=== PATIENT | female | born 1950 | race Caucasian/White ===

== ENCOUNTER 2024-04-09 15:19 | Emergency (ER) | payer OTHER, SELFPAY ==
[2024-04-09] VITALS (7 sets, daily range): BP systolic 74–118; BP diastolic 25–50; PULSE 53–83; RESP 12–18; TEMP 36.4; O2SAT 93–96
[2024-04-09] MEDS: Normal Saline 500 ML 250 ML IV (15:30)
--- NOTE | 2024-04-09 15:30 | DI.CT_ITS ---
Exam(s) CT HEAD CERV SPINE FACIAL WO EXAM: CT HEAD CERV SPINE FACIAL WO CLINICAL HISTORY: fall, hit head/face, on elaquis. TECHNIQUE: Imaging Protocol: Axial computed tomography images with coronal and sagittal reformatted images were created and reviewed COMPARISON: No exams were available for comparison FINDINGS: CT Head: Ventricles and Extra axial spaces: Normal in size and morphology for the patient's age. Hemorrhage: None. Cerebral parenchyma: There are areas of decreased attenuation in the white matter consistent with chr onic microvascular ischemic disease. No mass effect is identified. Midline shift: None. Brainstem/Cerebellum: Normal. Calvarium: Normal. Visualized Paranasal sinuses/Mastoids: There is mild mucosal thickening in the left maxillary sinus. The remaining visualized paranasal sinuses and mastoid air cells are clear. Soft Tissues: Unremarkable. CT Face: Facial Bones: No definite fracture is noted in facial bones. Sinuses and Mastoids: There is mild mucosal thickening in the left maxillary sinus. The remaining v isualized paranasal sinuses are clear. No air-fluid levels are seen. The mastoid air cells are danuta r. Globes, extraocular muscles, optic nerves and retrobulbar fat: Normal. Upper aerodigestive tract: Normal. Mandible and bilateral temporomandibular joints: Normal. Soft tissues: Normal. CT Cervical Spine: Bones: No acute fracture or subluxation. Note is made of DISH in the cervical spine. Soft Tissues: There is an 8 mm hypodensity in the left lobe of the thyroid gland. No follow-up is re commended. Lung Apices: Clear. IMPRESSION: 1. No acute intracranial process. 2. No acute fracture or subluxation in the cervical spine. 3. No acute facial fracture. RADIATION DOSE DELIVERED: 2,164.13mGy.cm Total DLP DATA REPOSITORY: All CT scans at this facility are submitted to the National Radiology Data Registry (NRDR) Dose Index Registry (DIR) with the [employer] (ACR). RADIATION OPTIMIZATION: All CT scans at this facility use at least one of these dose optimization te chniques: automated exposure control; mA and/or kV adjustment per patient size (includes targeted exa ms where dose is matched to clinical indication); or iterative reconstruction.
--- NOTE | 2024-04-09 15:30 | DI.RAD_ITS ---
Exam(s) XR SHOULDER RT COMPLETE 2+V EXAM: XR SHOULDER RT COMPLETE 2+V CLINICAL HISTORY: fall, hit right shoulder with pain. TECHNIQUE: 2D digital imaging was performed of the right shoulder. Three images were obtained. AP, Grashey and Y views were obtained. COMPARISON: No exams were available for comparison FINDINGS: BONES: An acute fracture through the surgical neck of the humerus. There is anterior and medial disp lacement of the distal fracture. No bony destructive lesion is seen. JOINTS: There is mild inferior subluxation of the humeral head relative to the glenoid. SOFT TISSUE: Normal. IMPRESSION: Acute displaced fracture involving the surgical neck of the right humerus. Please see the above disc ussion for complete details. DATA REPOSITORY: RADIATION DOSE DELIVERED:
--- NOTE | 2024-04-09 15:30 | DI.RAD_ITS ---
Exam(s) XR KNEE LT 3V AP,LAT,DEMARIO EXAM: XR KNEE LT 3V AP,LAT,DEMARIO CLINICAL HISTORY: fall, hit knee, hematoma. TECHNIQUE: 2D digital imaging was performed of the left knee. Three images were obtained. AP, late ral and PA tunnel views were obtained. COMPARISON: CR XR KNEE RT 3V AP,LAT,DEMARIO from 04/09/2024 FINDINGS: BONES: There is a question of depression of the medial tibial plateau. The bones are osteopenic. D ue to positioning evaluation is limited. No bony destructive lesion is seen. Enthesophytes are seen at the anterior patella. JOINTS: Moderately severe degenerative changes are present in the knee characterized by joint space n arrowing and osteophytes. No joint effusion is seen. No loose body. SOFT TISSUE: Normal. IMPRESSION: Question of depression of the medial tibial plateau. Medial tibial plateau fracture should be consid ered. CT scan of the knee should be considered in this patient for further evaluation. DATA REPOSITORY: RADIATION DOSE DELIVERED:
--- NOTE | 2024-04-09 15:34 | W.ED.GENAD ---
Discharge Plan Disposition Patient Disposition: Home Condition: Good Discharge Details Clinical Impression: Closed right humeral fracture, Contusion of nose Primary Care Provider: Unknown,Unknown ED Provider: Maurizio Durham Home Meds and New Rx's Prescriptions: No Action bumetanide 2 mg tablet 2 mg PO DAILY Eliquis 5 mg tablet 5 mg PO BID dapagliflozin propanediol [Farxiga] 10 mg tablet 10 mg PO DAILY tadalafil [Cialis] 20 mg tablet 20 mg PO Q OTHER DAY benazepril 40 mg tablet 40 mg PO DAILY potassium 20 mg tablet,chewable PO montelukast [Singulair] 10 mg tablet 10 mg PO DAILY Discharge Instructions Instructions: Upper Arm Fracture ED Additional Instructions: At this time you have a fracture of your humerus in your right arm/shoulder. Please keep your arm in the cuff and collar splint. Please take Tylenol as needed for pain, 1000 mg every 6 hours as a maximum dose. Please also gently apply the Voltaren gel to help with the pain. We have placed a referral with Dr. Jeana Garner's office. Please follow-up closely with them or your preferred client application support specialist. Please sleep seated somewhat upright to help with the pain. If you notice any worsening of your symptoms, or any new symptoms such as vomiting, diarrhea, fever, chills, shortness of breath, chest pain, numbness, weakness, or fainting , please return immediately to the emergency department for reevaluation. Please follow up with your primary care provider as soon as possible for reassessment and reevaluation. As always, it was a pleasure participating in your medical care today. Referrals: Gerry Garner MD [ [facility] STAFF PHYSICIAN] - Santi Hills MD [ [facility] STAFF PHYSICIAN] - [facility] General Date/Time Provider Initiated Documentation: 04/09/24 15:20. HPI Narrative: 73-year-old female who comes from [facility] and receives most of her care down there with a past medical history of chronically low blood pressure, pulmonary hypertension, right-sided heart failure, interstitial lung disease, high blood pressure, high cholesterol, tricuspid regurg, atrial fibrillation on Eliquis, presents today for evaluation after fall. Patient states that she was walking when she tripped on an edge of carpet. She fell onto her outstretched hands and elbows. She hit her face and nose, and her knees. EMS was called and she was brought to the ER for further assessment. Patient complains of pain at the nose right shoulder and knees bilaterally. No neck chest or abdominal pain. She denies any loss of consciousness. She denies any new numbness or tingling. No shortness of breath. No pleuritic chest pain. No other complaints at this time. Related Data Home Medications ?Medication ?Instructions ?Recorded ?Confirmed apixaban 5 mg tablet (Eliquis) 5 mg PO BID 04/09/24 04/09/24 benazepril 40 mg tablet 40 mg PO DAILY 04/09/24 04/09/24 bumetanide 2 mg tablet 2 mg PO DAILY 04/09/24 04/09/24 dapagliflozin propanediol 10 mg 10 mg PO DAILY 04/09/24 04/09/24 tablet (Farxiga) montelukast 10 mg tablet 10 mg PO DAILY 04/09/24 04/09/24 (Singulair) potassium 20 mg chewable tablet mg PO 04/09/24 tadalafil 20 mg tablet (Cialis) 20 mg PO Q OTHER DAY 04/09/24 04/09/24 Allergies Allergy/AdvReac Type Severity Reaction Status Date / Time Penicillins AdvReac Intermediate Other (See Verified 04/09/24 17:25 Comment) General Stated Complaint: Fall/Non TraumaCriteria JESICA: 3 Review of Systems All systems reviewed & are unremarkable except as noted in HPI and below Exam Narrative Exam Narrative: 1.Const: Well-nourished, Well-developed, appearing stated age 2.Eyes: PERRL, no conjunctival injection, and symmetrical lids. 3.ENT: Atraumatic external nose and ears. Moist MM. Neck: Symmetric, trachea midline, No thyromegaly. There is no evidence of raccoon eyes, diaz sign, CSF rhinorrhea, mastoid tenderness, cranial crepitus, hemotympanum, exophthalmos, or hyphema. Patient demonstrates intact dentition with no signs of tooth avulsion or fracture, no signs of jaw deformity, no evidence of a LeFort's fracture, with an intact palate, nose and orbital region. There is some mild abrasion and contusion over the bridge of the nose, minimal tenderness there. There is no evidence of a nasal septal hematoma. No proptosis. Jaw closes symmetrically. Airway is clear. 4.CVS: Regular rate and rhythm, Normal s1 and s2. No carotid bruits, rubs, or gallops. Radial pulses 2+ bilaterally and symmetric. Dorsalis pedis pulses 2+ bilaterally and symmetric. 2+ capillary refill. No evidence of distant heart sounds. No extremity edema. No evidence of gross hemorrhage. 5.RESP: Airway clear, no obstructions. No abrasions or ecchymosis. Chest movement symmetric with respirations. No chest wall tenderness. Trachea midline. No crepitus. No step offs. No paradoxical movements. Lungs are clear to auscultation bilaterally. No rales, rhonchi, wheezing or stridor. Breath sound symmetric. No Sucking chest wounds. No clinical evidence of significant chest trauma. 6.GI: Soft, nondistended, nontender. Bowel tones normoactive. No masses or organomegaly. No ecchymosis or abrasions. No periumbilical ecchymosis or seatbelt sign. No flank or CVA tenderness. No clinical signs of significant trauma. GNo clinical evidence of significant abdominal trauma. 7.MSK: No gross deformities. Left upper extremity unremarkable on exam. Right upper extremity demonstrates tenderness in the right shoulder for the humeral head, pain with all ranges of motion for the shoulder. No midshaft humeral pain or distal pain. No elbow or forearm pain on the right. Lower extremities demonstrate mild tenderness over the knees bilaterally with mild swelling and bruising, no gross deformity or laxity. Patient is able to flex and extend both knees and hips without difficulty. She is able to bear weight without significant pain. Vascular exam demonstrates brisk capillary refill and intact pulses in all extremities. Pelvic exam demonstrates a stable pelvis, nontender to lateral compression and palpation of symphysis pubis. No midline cervical thoracic or lumbar spine tenderness 8.Skin: Warm, Dry. No rashes or lesions. 9.Neuro: returned item clerk II-XII grossly intact. Sensation grossly intact, no focal neurologic deficits. 10.Psych: (AAO) x3. Appropriate mood and affect Course Vital Signs Vital signs: Vital Signs Temperature 36.4 C 04/09/24 15:18 Pulse 72 04/09/24 15:18 Respiratory Rate 18 04/09/24 15:18 Blood Pressure 74/30 L 04/09/24 15:18 Temperature 36.4 C 04/09/24 15:18 Pulse 72 04/09/24 15:18 Respiratory Rate 18 04/09/24 15:18 Blood Pressure 74/30 L 04/09/24 15:18 Oxygen Delivery Method Room Air 04/09/24 15:18 Oxygen Flow Rate 0 04/09/24 15:18 Medical Decision Making 73-year-old female who comes from [facility] and receives most of her care down there with a past medical history of chronically low blood pressure, pulmonary hypertension, right-sided heart failure, interstitial lung disease, high blood pressure, high cholesterol, tricuspid regurg, atrial fibrillation on Eliquis, presents today for evaluation after fall. Patient states that she was walking when she tripped on an edge of carpet. She fell onto her outstretched hands and elbows. She hit her face and nose, and her knees. EMS was called and she was brought to the ER for further assessment. Patient complains of pain at the nose right shoulder and knees bilaterally. No neck chest or abdominal pain. She denies any loss of consciousness. She denies any new numbness or tingling. No shortness of breath. No pleuritic chest pain. No other complaints at this time. Exam demonstrates swelling and bruising over the knees however she is able to bear weight moves both knees and hips well without significant pain. Right shoulder notably tender at the humeral head, concern for potential humeral head fracture or dislocation. Neurovascular exam normal. Contusion over the face and nose. No other signs of trauma on the head or scalp. Differential is highest for facial fracture, potential osseous injury to the shoulder and knees. Will get x-rays of the extremities, CT scans of the head neck and face, gently rehydrate as the patient does have notably dry mucous membranes, monitor closely and reassess. Initial blood pressure is low, however the patient states that she is chronically low. Heart rate is normal. She demonstrates good peripheral pulses and brisk capillary refill. No abdominal pain or tenderness and no chest wall pain. Symptoms appear clinically inconsistent with tension pneumothorax or massive abdominal hemorrhage. Will gently rehydrate with 500 cc bolus. 7 PM After gentle fluid bolus the patient's blood pressure is normalized to 104 systolic. Laboratory workup is stable. Electrolytes stable. Creatinine slightly high at 2, however she is making good urine. proBNP mildly elevated at 677. CT scan of the head neck and face is negative for acute process. X-ray of the right knee shows no acute process, x-ray of the left knee showed a questionable depression of the medial tibial plateau, consider CT scan. CT was ordered and shows no evidence of acute fracture. Patient's right shoulder demonstrates acute displaced fracture involving the surgical neck of the right humerus with mild medial displacement. Mild subluxation is noted, but no kahlil dislocation. Patient remains neurovascularly intact. Patient will be placed in a cuff and collar. I did briefly review the images with Dr. Hills, he would like to follow-up outpatient for potential nonemergent surgical management. Patient and family is uncertain if they will go back to [place] or have orthopedic management here, but they are thankful for a referral to be placed here. Will recommend Tylenol at home, as well as topical Voltaren gel. We did get the patient up and ambulate her. She did very well with this. They have a stair chair at home, and the entire home is wheelchair accessible. Will recommend sleeping upright in a recliner for the next few days. Family is very helpful and at bedside. They feel comfortable going home at this time. Patient will be discharged. Discussed red flags for which to return. I have extensively reviewed the treatment plan and discharge instructions with the patient and their family. I have addressed all patient concerns at this time. The patient and family was made aware of what symptoms to monitor for that would warrant a return to the emergency department. Discussed the plan with the patient and family, they demonstrate verbal understanding and agreement with our assessment and plan at this time. The documentation in this chart was dictated using [employer] dictation software. Please excuse any dictation errors. FINDINGS: Bones: The osseous structures and articular surfaces are intact. Bony alignment is satisfactory. No cellulitic or osteomyelitic changes are identified. Moderately severe degenerative changes are seen throughout the knee characterized by joint space narrowing and osteophytes. The bones are osteopenic. No lytic or sclerotic lesions are identified. Soft Tissues: There is a small amount of fluid in the joint space. Atherosclerotic calcification is present. IMPRESSION: No acute fracture or dislocation. Lt Knee FINDINGS: BONES: There is a question of depression of the medial tibial plateau. The bones are osteopenic. Due to positioning evaluation is limited. No bony destructive lesion is seen. Enthesophytes are seen at the anterior patella. JOINTS: Moderately severe degenerative changes are present in the knee characterized by joint space narrowing and osteophytes. No joint effusion is seen. No loose body. SOFT TISSUE: Normal. IMPRESSION: Question of depression of the medial tibial plateau. Medial tibial plateau fracture should be considered. CT scan of the knee should be considered in this patient for further evaluation. Rt Knee FINDINGS: BONES: No acute fracture is present. No bony destructive lesion is seen. There is an enthesophyte at the anterior patella. Bones are osteopenic. JOINTS: There are marked degenerative changes seen in the right knee characterized by joint space narrowing and osteophytes. The findings are most marked at the patellofemoral joint. No joint effusion is seen. SOFT TISSUE: Normal. IMPRESSION: No acute fracture or dislocation. FINDINGS: BONES: An acute fracture through the surgical neck of the humerus. There is anterior and medial displacement of the distal fracture. No bony destructive lesion is seen. JOINTS: There is mild inferior subluxation of the humeral head relative to the glenoid. SOFT TISSUE: Normal. IMPRESSION: Acute displaced fracture involving the surgical neck of the right humerus. Please see the above discussion for complete details. FINDINGS: CT Head: Ventricles and Extra axial spaces: Normal in size and morphology for the patient's age. Hemorrhage: None. Cerebral parenchyma: There are areas of decreased attenuation in the white matter consistent with chronic microvascular ischemic disease. No mass effect is identified. Midline shift: None. Brainstem/Cerebellum: Normal. Calvarium: Normal. Visualized Paranasal sinuses/Mastoids: There is mild mucosal thickening in the left maxillary sinus. The remaining visualized paranasal sinuses and mastoid air cells are clear. Soft Tissues: Unremarkable. CT Face: Facial Bones: No definite fracture is noted in facial bones. Sinuses and Mastoids: There is mild mucosal thickening in the left maxillary sinus. The remaining visualized paranasal sinuses are clear. No air-fluid levels are seen. The mastoid air cells are clear. Globes, extraocular muscles, optic nerves and retrobulbar fat: Normal. Upper aerodigestive tract: Normal. Mandible and bilateral temporomandibular joints: Normal. Soft tissues: Normal. CT Cervical Spine: Bones: No acute fracture or subluxation. Note is made of DISH in the cervical spine. Soft Tissues: There is an 8 mm hypodensity in the left lobe of the thyroid gland. No follow-up is recommended. Lung Apices: Clear. IMPRESSION: 1. No acute intracranial process. 2. No acute fracture or subluxation in the cervical spine. 3. No acute facial fracture. Quality:SDOH Health Related Social Needs: No Data to Display PFSH All Active Problems (Updated 04/09/24 @ 19:07 by Maurizio Durham DO) Contusion of nose (Acute) Closed right humeral fracture (Acute) Social History Smoking/Tobacco Use Status: Never Smoking risk assessment performed?: Yes Alcohol Intake: former Substance use type: does not use
[2024-04-09 15:43] LABS: Abs Immature Grans 0.05 10^3/uL (0.0-0.06); Absolute Basophil Count 0.06 10^3/uL (0.0-0.2); Absolute Lymphocyte Count 1.71 10^3/uL (1.2-3.4); Absolute Monocyte Count 0.91 10^3/uL (0.1-0.8); Basophils % 0.5 %; Eosinophils % 0.9 %; HCT 41.3 % (36.0-46.0); HGB 13.6 g/dL (11.2-15.7); Immature Grans % 0.4 %; MCHC 32.9 % (32.0-36.0); MCV 88 fL (80-95); MPV 10.8 fL (8.0-11.0); Neutrophils % 75.2 %; Platelet Count 183 10^3/uL (130-400); RBC 4.69 10^6/uL (3.93-5.22); RDW-SD 47.9 fL; WBC 11.43 10^3/uL (4.4-10.8)
[2024-04-09 15:58] LABS: INR 1.2 (0.9-1.1); PTT Activated 28.2 sec (23.6-32.8); Prothrombin Time 11.6 sec (9.1-11.1)
[2024-04-09 16:00] LABS: ALT 23 U/L (14-59); AST 18 U/L (15-37); Albumin 3.3 g/dL (3.4-5.0); Alkaline Phosphatase 75 U/L (46-116); Anion Gap 10.4 mmol/L (3-11); BUN 50 mg/dL (7-18); Bilirubin, Total 0.51 mg/dL (0.2-1.0); CO2 22.6 mmol/L (21.0-32.0); Calcium 9.2 mg/dL (8.5-10.1); Chloride 103 mmol/L (98-107); Estimated GFR 25.73 (mL/min/1.73m2); Glucose 116 mg/dL (74-106); Potassium 4.4 mmol/L (3.5-5.1); Sodium 136 mmol/L (136-145); Total Protein 7.4 g/dL (6.4-8.2)
[2024-04-09 16:18] LABS: NT-proBNP 677 pg/mL (<300)
--- NOTE | 2024-04-09 16:47 | DI.RAD_ITS ---
Exam(s) XR KNEE RT 3V AP,LAT,DEMARIO EXAM: XR KNEE RT 3V AP,LAT,DEMARIO CLINICAL HISTORY: fall, hit knee, hematoma. TECHNIQUE: 2D digital imaging was performed of the right knee. Three views obtained. AP, lateral an d PA tunnel views were obtained. COMPARISON: No exams were available for comparison FINDINGS: BONES: No acute fracture is present. No bony destructive lesion is seen. There is an enthesophyte at the anterior patella. Bones are osteopenic. JOINTS: There are marked degenerative changes seen in the right knee characterized by joint space chung rowing and osteophytes. The findings are most marked at the patellofemoral joint. No joint effusion is seen. SOFT TISSUE: Normal. IMPRESSION: No acute fracture or dislocation. DATA REPOSITORY: RADIATION DOSE DELIVERED:
[2024-04-09] MEDS: MORPHine 4 MG/ML SYR IVP (17:26)
--- NOTE | 2024-04-09 18:21 | DI.CT_ITS ---
Exam(s) CT LOWER EXTREMITY LT WO EXAM: CT LOWER EXTREMITY LT WO CLINICAL HISTORY: r/o tib plat fx. TECHNIQUE: Imaging Protocol: Axial computed tomography images with coronal and sagittal reformatted images were created and reviewed. COMPARISON: CR XR KNEE LT 3V AP,LAT,DEMARIO from 04/09/2024 FINDINGS: Bones: The osseous structures and articular surfaces are intact. Bony alignment is satisfactory. N o cellulitic or osteomyelitic changes are identified. Moderately severe degenerative changes are see n throughout the knee characterized by joint space narrowing and osteophytes. The bones are osteopen ic. No lytic or sclerotic lesions are identified. Soft Tissues: There is a small amount of fluid in the joint space. Atherosclerotic calcification is present. IMPRESSION: No acute fracture or dislocation. RADIATION DOSE DELIVERED: 211.05mGy.cm Total DLP 211.05mGy.cm Total DLP DATA REPOSITORY: All CT scans at this facility are submitted to the National Radiology Data Registry (NRDR) Dose Index Registry (DIR) with the [employer] (ACR). RADIATION OPTIMIZATION: All CT scans at this facility use at least one of these dose optimization te chniques: automated exposure control; mA and/or kV adjustment per patient size (includes targeted exa ms where dose is matched to clinical indication); or iterative reconstruction.
== END 2024-04-09 19:39 | disposition home or self-care (01) ==
PROVIDERS: Emergency Provider Student in an Organized Health Care Education/Training Program
DX: S00.33XA Contusion of nose, initial encounter (principal); S42.301A Unspecified fracture of shaft of humerus, right arm, initial encounter for closed fracture; S80.01XA Contusion of right knee, initial encounter; S80.02XA Contusion of left knee, initial encounter; H57.12 Ocular pain, left eye
CPT/HCPCS: 23600; 73562; 80053; 96361; 96374; 99284; 70450; 70486; 72125; 73030; 73700; 83880; 85025; 85610; 85730; 99283; J2270